=== PATIENT | female | born 1960 | race Caucasian/White ===

== ENCOUNTER 2022-06-19 08:53 | Day surgery (SDC) | payer OTHER ==
[2022-06-15 12:07] VITALS: BMI 29.0
[2022-06-19] MEDS ORDERED: PROPOFOL 100 ML ONE (10:25)
[2022-06-19 11:13] VITALS: RESP 18
[2022-06-19 11:35] VITALS: BP 124/74; PULSE 77; TEMP 97.8
== END 2022-06-19 11:35 | disposition home or self-care (01) ==
LOC: FASU-ENDO 08:53
PROVIDERS: ATTEND Internal Medicine Gastroenterology
PROC: 0DJD8ZZ Inspection of Lower Intestinal Tract, Via Natural or Artificial Opening Endoscopic (ICD-10-PCS; principal; 2022-06-19 10:40)
DX: Z12.11 Encounter for screening for malignant neoplasm of colon (principal); K57.30 Diverticulosis of large intestine without perforation or abscess without bleeding